=== PATIENT | female | born 1990 | race Caucasian/White ===

== ENCOUNTER 2016-10-11 13:52 | Emergency (ER) | payer OTHER ==
[~2016-10-11] VITALS: Ht 165.1 cm; Wt 47.5 kg
[2016-10-11 14:31] VITALS: Ht 165.1 cm; Wt 47.5 kg
[2016-10-11] MEDS ORDERED: ONDANSETRON 4 MG INJ IV STA ×2 (15:01→16:35)
[2016-10-11] MEDS ORDERED: SOD CHLORIDE 0.9% 1,000 ML IV STA ×2 (15:01→16:35)
--- NOTE | 2016-10-11 15:06 | ERD ---
ER Documentation Chief Complaint Date/Time DATE: 10/11/16 TIME: 15:03 Chief Complaint Vomiting since last night feels hehydrated. HPI This is a 25-year-old female with a history of lupus nephritis, status post ischemic CVA in 2013 on blood thinners, HTN presenting to the emergency room complaining of vomiting since last night. Patient admits to having mild abdominal pain due to the vomiting. She states that she had one episode of diarrhea. She denies any fevers. She states that this has happened a few times in the past due to her condition. Patient states that she tried to take Zofran earlier today but she vomited it and cannot keep it down. Patient states that she is currently on her menstrual period. ROS All systems reviewed and are negative except as per history of present illness. Medications Home Meds Active Scripts Promethazine Hcl* (Phenergan*) 25 Mg Tablet, 25 MG PO Q6H Y for NAUSEA, #20 TAB Prov:RUSSELL HESS PA-C 10/11/16 Electrolyte,Oral (Pedialyte) 1,000 Ml Solution, 100 ML PO Q6, #1000 ML Prov:RUSSELL HESS PA-C 10/11/16 Ondansetron (Ondansetron Odt) 4 Mg Tab.rapdis, 4 MG PO Q6H Y for NAUSEA AND/OR VOMITING, #10 TAB Prov:RUSSELL HESS PA-C 10/11/16 Allergies Allergies: Coded Allergies: No Known Allergy (Unverified , 10/11/16) PMhx/Soc Medical and Surgical Hx: pt denies Surgical Hx History of Surgery: No Anesthesia Reaction: No Hx Neurological Disorder: No Hx Respiratory Disorders: No Hx Cardiac Disorders: No Hx Psychiatric Problems: No Hx Miscellaneous Medical Probl: Yes (CVA 2014, LUPUS, GERD) Hx Alcohol Use: No Hx Substance Use: No Hx Tobacco Use: No Smoking Status: Never smoker Physical Exam Vitals Vital Signs Date Time Temp Pulse Resp B/P Pulse Ox O2 Delivery O2 Flow Rate FiO2 10/11/16 14:31 98.6 76 20 137/74 100 Physical Exam GENERAL: well-developed/well-nourished, in no apparent distress, non-toxic appearing HENT: NC/AT, moist mucous membranes EYES: Conjunctiva normal NECK: Supple, no lymphadenopathy PULM: CTA bilaterally, no rales, rhonchi, or wheezing heard CV: Normal S1S2, RRR, good capillary refill GI: Soft, non-distended, mild tender to palpation in all quadrants Normal bowel sounds, no masses or organomegaly felt on exam No gross peritonitis, no bruits Negative Rovsing, negative Hayden, negative McBurney's point, Negative CVAT BACK: No masses EXT: No clubbing, cyanosis, or edema NEURO: Alert and Orientated SKIN: Intact, normal turgor PSYCH: Normal mood and mentation Result Diagram: 10/11/16 1511 10/11/16 1511 Results 24 hrs Laboratory Tests Test 10/11/16 15:11 10/11/16 15:17 Alanine Aminotransferase (ALT/SGPT) 64IU/L Albumin 4.7g/dl Albumin/Globulin Ratio 1.80 Alkaline Phosphatase 44IU/L Anion Gap 23 Aspartate Amino Transf (AST/SGOT) 67IU/L Basophils # Pending Basophils % Pending Blood Morphology Comment Blood Urea Nitrogen 11mg/dl Calcium Level 9.6mg/dl Carbon Dioxide Level 25mmol/L Chloride Level 103mmol/L Creatinine 0.54mg/dl Direct Bilirubin 0.00mg/dl Eosinophils # Pending Eosinophils % Pending Globulin 2.60g/dl Glucose Level 125mg/dl Hematocrit 38.7% Hemoglobin 12.8g/dl Indirect Bilirubin 0.3mg/dl Lipase 26U/L Lymphocytes # Pending Lymphocytes % Pending Mean Corpuscular Hemoglobin 27.6pg Mean Corpuscular Hemoglobin Concent 33.1g/dl Mean Corpuscular Volume 83.4fl Mean Platelet Volume 9.2fl Monocytes # Pending Monocytes % Pending Neutrophils # Pending Neutrophils % Pending Nucleated Red Blood Cells # Pending Nucleated Red Blood Cells % Pending Platelet Count 01599^3/UL Potassium Level 4.0mmol/L Red Blood Count 4.6410^6/ul Red Cell Distribution Width 14.4% Sodium Level 147mmol/L Total Bilirubin 0.3mg/dl Total Protein 7.3g/dl White Blood Count 11.610^3/ul Bedside Urine Blood 3+ Bedside Urine Glucose (UA) Negative Bedside Urine Ketones (LAB) 3+ Bedside Urine Leukocyte Esterase (L Negative Bedside Urine Nitrite (LAB) Negative Bedside Urine Protein (LAB) 2+ Bedside Urine pH (LAB) 7.5 Current Medications Medications (Trade) Dose Ordered Sig/Eduardo Route PRN Reason Start Time Stop Time Status Last Admin Dose Admin Sodium Chloride (NS) 1,000 ml @ 1,000 mls/hr Q1H STAT IV 10/11/16 15:01 10/11/16 16:00 DC 10/11/16 15:17 Ondansetron HCl 4 mg 4 mg ONCE STAT IV 10/11/16 15:01 10/11/16 15:03 DC 10/11/16 15:17 Sodium Chloride (NS) 1,000 ml @ 1,000 mls/hr Q1H STAT IV 10/11/16 16:35 10/11/16 17:34 10/11/16 16:43 Ondansetron HCl (Zofran Inj) 4 mg ONCE STAT IV 10/11/16 16:35 10/11/16 16:36 DC 10/11/16 16:43 Metoclopramide HCl (Reglan) 10 mg ONCE ONCE IV 10/11/16 17:00 10/11/16 17:01 DC 10/11/16 17:06 Diphenhydramine HCl (Benadryl) 50 mg ONCE ONCE IV 10/11/16 17:00 10/11/16 17:01 DC 10/11/16 17:06 Procedures/MDM This is a 25-year-old female with a history of lupus nephritis, status post ischemic CVA in 2013 on blood thinners, HTN presenting to the emergency room complaining of vomiting since last night. Patient admits to having mild abdominal pain due to the vomiting. Abdominal exam was unremarkable. Patient states that this has happened a few times before due to her condition and she usually gets fluids. This is likely viral gastroenteritis. I have thought about gastroenteritis, appendicitis, bacteremia, pancreatitis, cholecystitis. IV access established. Patient was given 2 L of fluids. Patient was given 4 mg of Zofran IV, I have reassessed patient and she did feel better but still felt nauseous. Patient was given Reglan 10 mg and Benadryl 50 mg through the IV. Patient significantly better after medications and fluids. Lab work was drawn. CBC did not show any evidence of significant leukocytosis or anemia. White count was mildly elevated however likely due to a stress reaction. CMP did not show any evidence of renal, liver, or electrolyte abnormalities. Lipase was normal. UA did not show any evidence of urinary tract infection, it was positive for hemoglobin however patient is on her menstrual period. Patient appears well, stable vital signs. I have reassessed patient and she felt significantly better with stable vitals signs however I still wanted her to be observed for half an hour longer and pass a fluid challenge test. Patient will be followed up by SILVANO Rodriguez, if patient's nausea and vomiting does not improve, further care and management will be provided by SILVANO Rodriguez. If she continues to improve, patient will be discharged per my disposition instructions. I have discussed to follow-up with her primary care physician in the next couple days for further evaluation management. Discussed return to the ER for any worsening signs or symptoms are not improving as expected. Patient understands and agrees with plan. Prescription for Phenergan and Pedialyte was given. Departure Diagnosis: Primary Impression: Nausea and vomiting Vomiting type: unspecified Vomiting Intractability: unspecified Qualified Code: R11.2 - Nausea and vomiting, intractability of vomiting not specified, unspecified vomiting type Condition: Stable RUSSELL HESS PA-C Oct 11, 2016 15:06
[2016-10-11 15:15] LABS: URINE BLOOD (Dip) POC 3+ (NEGATIVE)
[2016-10-11 15:56] LABS: ALBUMIN 4.7 g/dl (3.3-4.9)
[2016-10-11 15:59] LABS: ALBUMIN/GLOBULIN RATIO 1.8; BILIRUBIN,INDIRECT 0.3 mg/dl (0-1.1); BILIRUBIN,TOTAL 0.3 mg/dl (0.2-1.3); CALCIUM 9.6 mg/dl (8.4-10.2); CREATININE 0.54 mg/dl (0.44-1.00); HEMATOCRIT 38.7 % (37.0-47.0); HEMOGLOBIN 12.8 g/dl (12.0-16.0); MEAN CORPUSCULAR HEMOGLOBIN 27.6 pg (29.0-33.0); MEAN CORPUSCULAR HGB CONC 33.1 g/dl (32.0-37.0); MEAN CORPUSCULAR VOLUME 83.4 fl (82.0-101.0); MEAN PLATELET VOLUME 9.2 fl (7.4-10.4); PLATELET COUNT 196 10^3/UL (140-440); RED BLOOD COUNT 4.64 10^6/ul (4.20-5.40); RED CELL DISTRIBUTION WIDTH 14.4 % (11.5-14.5); TOTAL PROTEIN 7.3 g/dl (6.1-8.1); UNCORRECTED WBC 11.6 10^3/ul (4.8-10.8); WHITE BLOOD COUNT 11.6 10^3/ul (4.8-10.8)
[2016-10-11 16:16] LABS: CONDITION 1; LH ANALYZER COMMENTS 1
[2016-10-11] MEDS ORDERED: ELEC100080 PO (16:42)
[2016-10-11] MEDS ORDERED: ONDA4TAB14 PO (16:42)
[2016-10-11] MEDS ORDERED: PROM25TA14 PO (16:53)
[2016-10-11] MEDS ORDERED: DIPHENHYDRAMINE 50 MG INJ IV ONE (17:00)
[2016-10-11] MEDS ORDERED: METOCLOPRAMIDE 10 MG INJ IV ONE (17:00)
[2016-10-11 17:41] LABS: LYMPHOCYTES # 0.6 10^3/ul (0.8-2.9); MONOCYTE # 0.5 10^3/ul (0.3-0.9); NEUTROPHIL # 10.3 10^3/ul (1.6-7.5)
[2016-10-11 18:31] VITALS: BP 102/61; PULSE 88; RESP 18; TEMP 98.6
== END 2016-10-11 18:36 | disposition home or self-care (01) ==
LOC: FTE 13:52
DX: R11.2 Nausea with vomiting, unspecified (principal); I10 Essential (primary) hypertension
CPT/HCPCS: 36415; 80053; 81003; 83690; 85025; 96374; 96375; 96376; 99284; J1200; J2405; J2765; J7030